=== PATIENT | female | born 1985 | race Caucasian/White ===

== ENCOUNTER 2017-08-28 18:11 | Inpatient (IN) | payer OTHER ==
[~2017-08-28] VITALS: Ht 160 cm; Wt 90.7 kg
[~2017-08-28 18:11] MED LIST: COG1 PO; FOLIC ACID0.4 MG PO; KEFLEX250 MG PO; RIS1 PO; [UNRECOGNIZED DRUG - OTHER] PO
[2017-08-28 19:11] LABS: BASOPHIL % 0.3 % (0-2); PLATELET COUNT 146 x10^3mcL (130-400); RED CELL DISTRIBUTION WIDTH 11.8 % (11.5-14.5)
[2017-08-28 19:28] LABS: CARBON DIOXIDE 24.1 mmol/L (21-32); CHLORIDE SERUM 103 mmol/L (98-107); CREATININE SERUM 0.8 mg/dL (0.6-1.0); GFR1 > 60 mL/min; GLUCOSE SERUM 137 mg/dL (74-106); POTASSIUM SERUM 3.6 mmol/L (3.5-5.1); SODIUM SERUM 141 mmol/L (136-145)
[2017-08-28 19:48] LABS: ALBUMIN 3.8 g/dL (3.4-5.0); ALKALINE PHOSPHATASE 77 U/L (46-116); ALT/SGPT 39 U/L (14-59); AST/SGOT 18 U/L (15-37); BILIRUBIN TOTAL 0.26 mg/dL (0.20-1.00); TOTAL PROTEIN, SERUM 8.1 g/dL (6.4-8.2)
[2017-08-28 21:51] LABS: AMPHETAMINE QUAL UR NONE DETECTED (NEG <=1000)
[2017-08-29 07:13] LABS: CHOLESTEROL/HDL RATIO 4.4; PHOSPHOROUS 3.3 mg/dL (2.5-4.9)
[2017-08-29 07:23] LABS: T3 TOTAL 1.22 ng/mL
[2017-08-29 09:11] LABS: FREE T4 1.7 ng/dL (0.76-1.46); FREE THYROXINE INDEX 4.8 ug/dL (1.4-4.5); T4(THYROXINE) 12.7 ug/dL (4.7-13.3)
[2017-08-29] MEDS ORDERED: ZYPREXA5 M1 PO (09:41)
[2017-08-29 10:58] LABS: UA SPECIFIC GRAVITY >=1.030 (1.005-1.035); microscopic required? YES; urine erythrocyte NEGATIVE (NEGATIVE)
[2017-08-29 11:08] VITALS: BP 95/60
[2017-08-29 12:55] VITALS: BP 104/67
[2017-08-29 17:25] VITALS: BP 129/86
[2017-08-29 18:27] VITALS: Ht 160 cm; Wt 90.7 kg
[2017-08-29 21:43] VITALS: BP 118/73
[2017-08-30 11:12] VITALS: BP 138/96
[2017-08-30 15:08] VITALS: BP 138/96
[2017-08-30 15:40] VITALS: BP 117/75
== END 2017-08-30 18:40 | disposition home or self-care (01) | DRG 750 ==
LOC: ED 18:11 → MU 08-29 09:02 → DU 08-29 09:02 → EDBEDREQ 08-29 10:14 → EDBEDREQSVC 08-29 10:14 → DU 08-29 10:28 → MU 08-30 09:56
PROVIDERS: Emergency Medicine; Family Medicine
DX: F25.0 Schizoaffective disorder, bipolar type (principal); N17.0 Acute kidney failure with tubular necrosis; G93.40 Encephalopathy, unspecified; R45.851 Suicidal ideations; Z83.3 Family history of diabetes mellitus; E78.5 Hyperlipidemia, unspecified; Z91.19 Patient's noncompliance with other medical treatment and regimen; R73.03 Prediabetes
CPT/HCPCS: 83880; 84439; G0480; J1200; J1630; J7030; Q0092